=== PATIENT | female | born 1940 | race African-American/Black ===

== ENCOUNTER 2016-10-18 07:04 | Inpatient (IN) | payer MEDICARE, OTHER ==
[~2016-10-18] VITALS: Ht 154.9 cm; Wt 56.2 kg
[2016-10-18] VITALS (11 sets, daily range): BP systolic 132–169; BP diastolic 55–93
[~2016-10-18 07:04] MED LIST: ACET500T68 PO; ALLO100T PO; ALLO300T PO; AMLO10TA2 PO; ASPI81TA2 PO; ASPI81TA9 PO; BETH25TA PO; CARV3.122 PO; CEPH-264 PO; CLOP75TA PO; CLOP75TA27 PO; ESCI10TA PO; FERR325T58 PO; FURO-69 PO; FURO80TA3 PO; IPRA3AMP NEB; LEVO250T25 PO; LEVO88TA4 PO; LISI10TA2 PO; PANT40TA3 PO; PANT40TA5 PO; PRAV10TA2 PO; PRAV40TA2 PO; RIFA550T PO; SPIR25TA3 PO; SPIR50TA2 PO; TAMS0.4C2 PO; TORS20TA2 PO; TRAM50TA PO; ZOLP5TAB PO
[2016-10-18 07:35] LABS: BASO % 1 % (0-3); EOS % 3 % (0-3); HEMATOCRIT 32.5 % (36.0-47.0); HEMOGLOBIN 10.2 g/dL (12.0-15.5); LYMPH # 0.4 x10^3/uL (1.0-4.8); LYMPH % 10 % (24-48); MEAN CORPUSCULAR HEMOGLOBIN 27 pg (25-35); MEAN CORPUSCULAR HGB CONC 31 g/dL (31-37); MEAN CORPUSCULAR VOLUME 86 fL (79-100); MONO % 9 % (0-9); NEUT % 77 % (31-73); PLATELET COUNT 69 x10^3/uL (140-400); RED BLOOD COUNT 3.77 x10^6/uL (3.50-5.40); RED CELL DISTRIBUTION WIDTH 17.6 % (11.5-14.5); WHITE BLOOD COUNT 4.3 x10^3/uL (4.0-11.0)
[2016-10-18 07:43] LABS: INR 1.2 (0.8-1.1); PROTHROMBIN TIME PATIENT 14.7 SEC (11.7-14.0)
[2016-10-18] MEDS ORDERED: CLOP75TA27 PO (07:51)
[2016-10-18] MEDS ORDERED: ISOS30TA4 PO (07:51)
[2016-10-18] MEDS ORDERED: ASCO500C PO (07:51)
[2016-10-18] MEDS ORDERED: CARV6.252 PO (07:51)
[2016-10-18] MEDS ORDERED: SPIR25TA3 PO (07:51)
[2016-10-18] MEDS ORDERED: LISI40TA PO (07:51)
[2016-10-18] MEDS ORDERED: FERR-26 PO ×2 (07:51→14:46)
[2016-10-18] MEDS ORDERED: ALLO300T PO (07:51)
[2016-10-18] MEDS ORDERED: LEVO75TA5 PO (07:51)
[2016-10-18 07:55] LABS: CALCIUM 8.9 mg/dL (8.5-10.1); GFR 65.8; POTASSIUM 3.8 mmol/L (3.5-5.1)
[2016-10-18] MEDS ORDERED: NALOXONE 0.4 MG/ML VIAL. ONE (08:16)
[2016-10-18] MEDS ORDERED: LIDOCAINE 1% / SOD BICARB 8.4% 20 ML VIAL. IJ ONE ×2 (08:16→08:45)
[2016-10-18] MEDS ORDERED: MIDAZOLAM HCL/PF 5 MG/5 ML VIAL ONE (08:17)
[2016-10-18] MEDS ORDERED: FENTANYL PF 250 MCG/5 ML VIAL. ONE (08:17)
[2016-10-18] MEDS ORDERED: FLUMAZENIL 0.5 MG/5 ML VIAL. IV ONE (08:17)
[2016-10-18] MEDS ORDERED: IODIXANOL 320 MG/ML 100 ML VIAL. ONE (08:23)
[2016-10-18] MEDS ORDERED: IOHEXOL 300 MG/ML 100ML VIAL. ONE (08:23)
[2016-10-18] MEDS ORDERED: HEPARIN for ARTERIAL LINE 1,500 ML ONE (08:23)
[2016-10-18] MEDS ORDERED: IODIXANOL 320MG/ML 50ML VIAL. ONE (08:23)
[2016-10-18] MEDS ORDERED: MIDAZOLAM HCL/PF 5 MG/5 ML VIAL IV ONE (08:45)
[2016-10-18] MEDS ORDERED: FENTANYL PF 250 MCG/5 ML VIAL. IV ONE (08:45)
[2016-10-18] MEDS ORDERED: IOHEXOL 300 MG/ML 100ML VIAL. IART ONE (08:45)
[2016-10-18] MEDS ORDERED: IODIXANOL 320 MG/ML 100 ML VIAL. IART ONE (08:45)
[2016-10-18] MEDS ORDERED: CONTRAST GIVEN MC PRN (09:00)
[2016-10-18] MEDS ORDERED: HEPARIN for IV BOLUS 10,000 UNIT/10 ML VIAL. ONE (09:15)
[2016-10-18] MEDS ORDERED: HEPARIN for IV BOLUS 10,000 UNIT/10 ML VIAL. IART ONE (10:00)
[2016-10-18] MEDS ORDERED: PROTAMINE 50 MG/5 ML VIAL. IV ONE ×2 (12:00→12:15)
--- NOTE | 2016-10-18 12:34 | PDOC ---
MODERATE SEDATION ASSESSMENT RISKS/ALTERNATIVES Risks/Alternatives Risks and alternatives of this type of sedation and procedure discussed with: RISK/ALTERNATIVES: Patient H & P ON CHART H & P H & P on chart and reviewed for co-morbid conditions and appropriate labs. H&P ON CHART: Yes STATUS PREG STATUS ASSESSED: N/A MEDS/ALLERGIES REVIEWED Meds/Allergies Reviewed Medications and Allergies including time and route of recently administered narcotics and sedatives. MEDS/ALLERGIES REVIEWED: Yes ASA RATING ASA RATING: III AIRWAY ASSESSMENT Airway Assessment Airway patency, oral function limitations, presence of caps, crowns, dentures, partials, and ability to extend neck assessed. AIRWAY ASSESSMENT: Yes MALLAMPATI SCORE MALLAMPATI SCORE: II PRE-SEDATION ASSESSMENT PRE-SEDATION ASSESSMENT: Yes KODI SIMENTAL MD Oct 18, 2016 12:34
--- NOTE | 2016-10-18 12:41 | PDOC ---
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 Post-Procedure Diagnosis Post-Procedure Diagnosis Severe mid-distal left SFA occlusive disease. Pop recon above knee. Dominant single vessel PT distal r/o to foot Procedure Performed Procedure Performed Selective left leg angio---antegrade access. PRODUCTION HAND entire left SFA. Stent from mid left SFA - proximal Poplitaeal Type of Anesthesia Type of Anesthesia Local + Mod sedation Estimated Blood Loss EBL: 100 cc Condition of Patient Condition of Patient Stable. Left groin hematoma, s/p failed Mynx closure. Disposition Disposition Due to groin hematoma, recommend overnight obs admit. F/u with Dr Xie. Full report to follow. Resume daily plavix. Note: 1. Post procedure CT abd/pelvis confirmed localized left groin hematoma. Will request Doppler ultrasound to exclude pseudoaneurysm. 2. CT images also revealed changes c/w cirrhosis and portal HTN, with large volume ascites. KODI SIMENTAL MD Oct 18, 2016 12:41
--- NOTE | 2016-10-18 12:45 | PDOC1 ---
History and Physical Date of Procedure Date of Admission 10/18/16 Procedure Procedure Selective left lower extremity +/- intervention, if possible Indication Indication 75 YO female with angiographically proven PAD. Left calf claudication. Past Medical History Past Medical History See Nursing Pre Procedure PMH Past Surgical History Past Surgical History See Nursing Pre procedure PSH Current Medications Current Medications Current Medications Lidocaine/Sodium Bicarbonate (Buffered Lidocaine 1%) 20 ml STK-MED ONCE IJ ; Start 10/18/16 at 08:16; Stop 10/18/16 at 08:17; Status DC Naloxone HCl (Narcan) 0.4 mg STK-MED ONCE .ROUTE ; Start 10/18/16 at 08:16; Stop 10/18/16 at 08:17; Status DC Flumazenil (Romazicon) 0.5 mg STK-MED ONCE IV ; Start 10/18/16 at 08:17; Stop at 08:18; Status DC Midazolam HCl (Versed) 5 mg STK-MED ONCE .ROUTE ; Start 10/18/16 at 08:17; Stop 10/18/16 at 08:18; Status DC Fentanyl Citrate (Fentanyl 5ml Vial) 250 mcg STK-MED ONCE .ROUTE ; Start at 08:17; Stop 10/18/16 at 08:18; Status DC Iodixanol (Visipaque 320) 50 ml STK-MED ONCE .ROUTE ; Start 10/18/16 at 08:23; Stop 10/18/16 at 08:24; Status DC Iohexol 100 ml 100 ml STK-MED ONCE .ROUTE ; Start 10/18/16 at 08:23; Stop at 08:24; Status DC Heparin Sodium/ Sodium Chloride 1,500 ml @ As Directed STK-MED ONCE .ROUTE ; Start 10/18/16 at 08:23; Stop 10/18/16 at 08:24; Status DC Iodixanol (Visipaque 320) 100 ml STK-MED ONCE .ROUTE ; Start 10/18/16 at 08:23; Stop 10/18/16 at 08:24; Status DC Heparin Sodium/ Sodium Chloride 1,000 unit 1X ONCE IART Last administered on t 10:51; Start 10/18/16 at 08:45; Stop 10/18/16 at 08:51; Status DC Lidocaine/Sodium Bicarbonate (Buffered Lidocaine 1%) 20 ml 1X ONCE IJ Last administered on 10/18/16 10:52; Start 10/18/16 at 08:45; Stop 10/18/16 at 08:52 ; Status DC Midazolam HCl (Versed) 5 mg 1X ONCE IV Last administered on 10/18/16 08:45; Start 10/18/16 at 08:45; Stop 10/18/16 at 08:52; Status DC Fentanyl Citrate (Fentanyl 5ml Vial) 250 mcg 1X ONCE IV Last administered on 08:45; Start 10/18/16 at 08:45; Stop 10/18/16 at 08:51; Status DC Iohexol (Omnipaque 300 Mg/ml) 100 ml 1X ONCE IART ; Start 10/18/16 at 08:45; Stop 10/18/16 at 08:52; Status DC Iodixanol (Visipaque 320) 150 ml 1X ONCE IART Last administered on 10/18/16 08:45; Start 10/18/16 at 08:45; Stop 10/18/16 at 08:51; Status DC Info (Do NOT chart on this entry -- for MONITORING) 1 each PRN DAILY PRN MC SEE COMMENTS; Start 10/18/16 at 09:00; Stop 10/20/16 at 08:59 Heparin Sodium (Porcine) 10,000 unit STK-MED ONCE .ROUTE ; Start 10/18/16 at 09: 15; Stop 10/18/16 at 09:16; Status DC Heparin Sodium (Porcine) 4,000 unit 1X ONCE IART Last administered on 10:00; Start 10/18/16 at 10:00; Stop 10/18/16 at 10:01; Status DC Protamine Sulfate 50 mg STK-MED ONCE IV ; Start 10/18/16 at 12:00; Stop at 12:01; Status DC Protamine Sulfate 20 mg 1X ONCE IV ; Start 10/18/16 at 12:15; Stop 10/18/16 at 12:16; Status DC Active Scripts Active Protonix (Pantoprazole Sodium) 40 Mg Tablet 40 Mg PO DAILYAC Reported Carvedilol 6.25 Mg Tablet 1 Tab PO DAILY Spironolactone 25 Mg Tablet 1 Tab PO BID Lisinopril 40 Mg Tablet 1 Tab PO DAILY Levothyroxine Sodium 75 Mcg Tablet 1 Tab PO DAILY Isosorbide Mononitrate Er (Isosorbide Mononitrate) 30 Mg Tab.er.24h 1 Tab PO DAILY Ferrous Sulfate 325 Mg Tablet 1 Tab PO BID Vitamin C (Ascorbic Acid) 500 Mg Capsule.er 500 Mg PO DAILY Plavix (Clopidogrel Bisulfate) 75 Mg Tablet 1 Tab PO DAILY Allopurinol 300 Mg Tablet 1 Tab PO DAILY Aspirin Ec (Aspirin) 81 Mg Tablet.dr 1 Tab PO DAILY Bethanechol Chloride 25 Mg Tablet 50 Mg PO TID Amlodipine Besylate 10 Mg Tablet 10 Mg PO DAILY Allergies Allergies: Coded Allergies: codeine (Verified Allergy, Severe, Anaphylaxis, tolerates Lortab OK, ) Physical Exam Vital Signs Vital Signs Date Time Temp Pulse Resp B/P Pulse Ox O2 Delivery O2 Flow Rate FiO2 10/18/16 11:17 58 12 100 Nasal Cannula 2.0 10/18/16 07:38 97.8 158/79 97.8 Lungs: Clear to auscultation Heart: Regular rate Psych/Mental Status: Mental status NL Vascular 1+ left SHOE LAY OUT PLANNER pulse. Left foot cool, with nonpalpable pulses. Diagnostic Data/Imaging Images Previous [facility] cardiology femoral r/o from 05/03/16 personally reviewed. Assessment Assessment Significant left lower extremity PAD, with claudication. Problems: Plan Plan Selective left leg angio via sono guided antegrade access. Endovascular Tx of left SFA-POP segment, if possible. KODI SIMENTAL MD Oct 18, 2016 12:44
--- NOTE | 2016-10-18 12:54 | RAD ---
Indication: Left groin hematoma. Axial imaging through the abdomen and pelvis was performed without contrast. Comparison is made with prior CT from 01/12/2011. The lung bases are clear. The liver has somewhat of a nodular contour. The possibility of cirrhosis cannot be excluded. The spleen is enlarged at 13.5 cm. There is perihepatic and perisplenic ascites. Pancreas is unremarkable. No adrenal mass is detected. There is contrast within both renal collecting systems from recent IV contrast. Aorta and iliac vessels are heavily calcified but nonaneurysmal. The small and large bowel loops are normal caliber. There is a large amount of free fluid in the remainder of the abdomen as well as the pelvis. The bladder is decompressed by Pascual catheter. The uterus is unremarkable. There is a hematoma in the left groin measuring 4.7 x 3.3 cm. Moderate amount of edema in the surrounding subcutaneous fat is also present. Impression: 1. Findings suspicious for cirrhosis and portal hypertension. There is splenomegaly and large abdominal and pelvic ascites. 2. Left groin hematoma, as described. No other significant abnormality is detected. PQRS Compliance Statement: One or more of the following individualized dose reduction techniques were utilized for this examination: 1. Automated exposure control 2. Adjustment of the mA and/or kV according to patient size 3. Use of iterative reconstruction technique
--- NOTE | 2016-10-18 15:25 | RAD ---
Left groin ultrasound, 10/18/2016: History: Groin swelling after arteriogram The left groin was carefully scanned. The common femoral artery and vein are patent. There is a 3.3 x 3.0 x 2.9 cm hypoechoic process present anterior to the femoral vessels at the groin level. No color flow is seen within this structure. The appearance is that of a complex fluid collection such as a hematoma. No pseudoaneurysm is identified. IMPRESSION: Moderate sized left groin hematoma.
--- NOTE | 2016-10-18 15:35 | PDOC ---
Provider Note Provider Note Dr Kaufman has been following Pt, RN paged Dr Kaufman to know about consult, RICKI MONROY MD Oct 18, 2016 15:35
[2016-10-18] MEDS ORDERED: ACETAMINOPHEN 325 MG TABLET. PO PRN (16:00)
--- NOTE | 2016-10-18 17:29 | PDOC ---
Provider Note Provider Note IR Note: S/P selective left leg angio with SFA-POP intervention. VSS. No expanding left groin hematoma---no pseudoaneurysm at Doppler U/S. Strong PT Doppler pulse at left ankle. Home in AM, if no further bleeding and if OK with Dr Kaufman--F/u with Dr Xie. KODI SIMENTAL MD Oct 18, 2016 17:28
--- NOTE | 2016-10-18 17:52 | PDOC ---
Provider Note Provider Note See consultation note dictation #[id number] Impression: 1. Peripheral arterial disease, left SFA status post intervention with stent and resultant hematoma left groin: 2. 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 Hypertension: 4. History of COPD: PAULA HOPKINS MD Oct 18, 2016 17:52
[2016-10-18] MEDS: SPIRONOLACTONE 25 MG TABLET PO SCH (21:46)
[2016-10-18] MEDS: FERROUS SULFATE 325 MG TABLET PO SCH (21:46)
[2016-10-18] MEDS: BETHANECHOL CHLORIDE 25 MG TABLET PO SCH (21:47)
[2016-10-19] VITALS (7 sets, daily range): BP systolic 103–168; BP diastolic 54–69
[2016-10-19] MEDS: HYDROCODONE/APAP 5/325MG TABLET. PO PRN ×2 (04:21→14:46)
[2016-10-19] MEDS: PANTOPRAZOLE 40 MG TABLET. PO SCH (07:34)
[2016-10-19] MEDS: LEVOTHYROXINE 75 MCG TABLET PO SCH (07:34)
--- NOTE | 2016-10-19 07:57 | RAD ---
Selective left lower extremity arteriogram via ultrasound-guided antegrade left common femoral artery access MANAGED CARE DIRECTOR entire left superficial femoral artery Stent placement from mid left superficial femoral artery through proximal popliteal artery Indication: 75-year-old female with angiographically proven, severe PAD, with left leg pain. Selective left lower extremity arteriogram, with possible intervention, has been requested by vascular surgery. Fluoroscopy time: 49.9 minutes Kerma-area Product: 5013.5 microGyM2 Contrast material: 125 cc Visipaque Anesthesia: 220 minutes moderate sedation was provided utilizing a total of 5 mg Versed and 250 mcg fentanyl, IV. The patient was appropriately monitored by a qualified independent observer throughout the time of moderate sedation. Consent: The procedure was explained in its entirety to the patient and/or the patient's designated liability claims representative by a member of the treatment team. This included a discussion of risks and benefits and commonly accepted alternatives to the procedure, as well as expected consequences of no treatment at all. Discussion of risks included, but was not limited to, those that are most frequent and those that are rare, but possibly severe or life-threatening, as well as the possibility of unforeseen complications. Sterility: All elements of maximal sterile barrier technique were utilized, including cap, mask, sterile gown, sterile gloves, large sterile sheet, appropriate hand hygiene, and 2% chlorhexidine for cutaneous antisepsis. Procedure: Informed consent was obtained from the patient. She was placed supine on the angiography table. Preliminary ultrasound examination of left groin revealed wide patency of left common femoral artery, which was documented with a single hard copy ultrasound image. Left groin was then prepped and draped in the usual sterile fashion, utilizing all elements of maximal sterile barrier technique, as described above. Moderate sedation was provided with IV Versed and fentanyl. Using aseptic technique, local anesthesia, direct ultrasound guidance, and the micropuncture system, a 5 Greenlandic antegrade left common femoral artery sheath was successfully introduced. Left lower extremity arteriogram: Visipaque 320 was injected through the left common femoral artery 5 Greenlandic sheath and DSA images were obtained over left groin and proximal thigh. A 4 Greenlandic angled glide catheter was then advanced through the 5 Greenlandic sheath and was successfully directed into proximal left superficial femoral artery. Visipaque 320 was again injected and DSA images were obtained from proximal thigh through knee. Following the percutaneous intervention described below, the 4 Greenlandic angled glide catheter was positioned within mid left popliteal artery. Visipaque 320 was injected and DSA images were obtained from knee through foot. Findings: Postoperative left common femoral artery is widely patent. Left deep femoral artery appears widely patent, as well. There is approximately 60% narrowing at origin of left superficial femoral artery. Mid-distal segment of left superficial femoral artery is generally small in caliber and is severely diseased, with multifocal significant stenoses and with areas of segmental occlusion. A 50% smooth stenosis lies within mid left popliteal artery, which is otherwise widely patent.. Anterior tibial artery is occluded just distal to its origin. Tibioperoneal trunk shows areas of mild eccentric narrowing. Dominant left lower extremity distal runoff is via posterior tibial artery, which is widely patent from origin through plantar vessels at mid foot. Smaller caliber peroneal artery is patent from origin through distal calf. Left lower extremity arterial intervention: Following the diagnostic arteriogram, the angled guide catheter was exchanged for a Raphael Cross catheter over a Beamly advantage guidewire. Subsequently, utilizing fluoroscopic guidance and road mapping technique, the Raphael Cross catheter/advantage guidewire combination was successfully advanced through the severely diseased mid and distal left superficial femoral artery into mid left popliteal artery. Intraluminal position of the Raphael Cross catheter within popliteal artery was confirmed with a contrast injection. The Raphael Cross catheter was then removed over the advantage wire. The 5 Greenlandic antegrade left common femoral artery sheath was exchanged for a 6 Greenlandic sheath. A 4 Greenlandic angled glide catheter was then advanced through the 6 Greenlandic sheath over the advantage wire into left popliteal artery. The angled glide catheter was then removed over a long grand slam microguidewire. Following IV bolus administration of 4000 units heparin, a 3 mm x 120 mm chocolate MANAGED CARE DIRECTOR balloon was advanced through the 6 Greenlandic sheath over the grand slam wire and was utilized to perform balloon angioplasty of entire left superficial femoral artery to a peak pressure of 9 gail for 3- 4 minutes. The 3 mm chocolate MANAGED CARE DIRECTOR balloon was then exchanged over the grand slam wire for a 4 mm x 120 mm chocolate balloon, which was also utilized to perform balloon angioplasty of entire left superficial femoral artery to a peak pressure of 9 gail for 3-4 minutes. Post plasty images revealed lutheran of patency of mid and distal left superficial femoral artery, with multiple areas of significant residual narrowing and with areas of flow-limiting dissection. Therefore, percutaneous stenting was considered necessary. A 5 mm x 100 mm Viabahn covered stent was advanced through the 6 Greenlandic sheath over the grand slam wire and was deployed across mid-distal left superficial femoral artery. An additional, overlapping 5 mm x 50 mm Viabahn covered stent was then deployed across mid left superficial femoral artery. Post dilatation of the 2 covered stents was then performed utilizing a 4 mm x 100 mm Powerflex MANAGED CARE DIRECTOR balloon, inflated to a peak pressure of 12 gail. Completion DSA images revealed widely patent middistal left superficial femoral artery, however, a short segment of flow limiting dissection was noted, extending into proximal left popliteal artery. Following an additional IV bolus ministration of 2000 units heparin, a 6 mm x 40 mm self-expanding Smart stent was carefully deployed across the area of dissection, extending superiorly into the more inferior Viabahn covered stent. Gentle post dilatation of the SMART stent was then performed utilizing the 4 mm MANAGED CARE DIRECTOR balloon. Completion DSA images revealed brisk antegrade flow across widely patent left superficial femoral artery, without complicating dissection, thrombosis, or distal embolization. Moderate, less than 50 % stenosis, was noted at the angioplastied left superficial femoral artery origin. The postoperative left common femoral artery and left deep femoral artery remains widely patent. Patient tolerated the arteriogram and arterial intervention procedure well, without apparent complication. However, attempted Mynx closure of the antegrade left common femoral artery puncture was unsuccessful. Hemostasis at left groin was eventually achieved following 60 minutes of manual pressure and with partial heparin reversal with protamine. A small residual left groin hematoma was present. Pseudoaneurysm formation was excluded by subsequent duplex Doppler ultrasound. Impression: 1. Severe mid-distal superficial femoral artery occlusive disease, including areas of segmental occlusion. Reconstituted left popliteal artery shows moderate stenosis at the level of knee joint. There is dominant single vessel left posterior tibial artery, which is widely patent from origin through plantar vessels at mid foot. 2. Successful left lower extremity arterial intervention, with lutheran of widely patent mid-distal left superficial femoral artery, as described, without complicating thrombosis or distal embolization. 3. Post procedure left groin hematoma, without pseudoaneurysm, resulting from failed Mynx puncture site closure. Due to this patient's closure site complication, the patient was admitted to primary care physician for overnight observation.
[2016-10-19] MEDS: CARVEDILOL 6.25 MG TABLET PO SCH (09:00)
[2016-10-19] MEDS: LISINOPRIL 40 MG TABLET. PO SCH (09:00)
[2016-10-19] MEDS: ISOSORBIDE MONONITRATE ER 30 MG TAB.ER.24H PO SCH (09:00)
[2016-10-19] MEDS: AMLODIPINE BESYLATE 10 MG TABLET PO SCH (09:00)
[2016-10-19] MEDS: SPIRONOLACTONE 25 MG TABLET PO SCH ×2 (09:20→21:51)
[2016-10-19] MEDS: ALLOPURINOL 300 MG TABLET. PO SCH (09:20)
[2016-10-19] MEDS: ASPIRIN ENTERIC COATED 81 MG TABLET.DR. PO SCH (09:20)
[2016-10-19] MEDS: BETHANECHOL CHLORIDE 25 MG TABLET PO SCH ×3 (09:20→21:53)
[2016-10-19] MEDS: CLOPIDOGREL BISULFATE 75 MG TABLET PO SCH (09:20)
[2016-10-19] MEDS: FERROUS SULFATE 325 MG TABLET PO SCH ×2 (09:20→21:51)
--- NOTE | 2016-10-19 11:50 | PDOC ---
Provider Note Provider Note s/p left SFA angioplasty and stenting yesterday by Dr. Mcrae AF VSS awake and alert left groin with bruising however soft and no hematoma left foot warm with doppler DP/PT pulses A/P s/p Left SFA angioplasty and stenting for rest pain - follow up with Dr. Xie 2 weeks following discharge - continue daily plavix NNAMDI XIE MD Oct 19, 2016 11:50
--- NOTE | 2016-10-19 13:44 | PDOC ---
SUBJECTIVE Subjective Still having some pain in the left groin and upper leg area. Able to void okay. Eating and drinking okay. No shortness of breath. Having some difficulty with ability still at this point. OBJECTIVE Vital Signs Vital Signs Date Time Temp Pulse Resp B/P Pulse Ox O2 Delivery O2 Flow Rate FiO2 10/19/16 08:00 Nasal Cannula 2.0 10/19/16 08:00 98.9 72 18 150/69 98 Nasal Cannula 2.0 98.9 10/19/16 05:21 14 95 Nasal Cannula 2.0 10/19/16 04:21 20 95 Nasal Cannula 2.0 10/19/16 04:00 99.8 79 14 168/67 95 Nasal Cannula 2.0 99.8 10/19/16 00:00 99.9 75 14 143/63 96 Nasal Cannula 2.0 99.9 10/18/16 20:00 Nasal Cannula 2.0 10/18/16 20:00 99.5 55 16 141/55 96 Nasal Cannula 2.0 99.5 10/18/16 15:15 55 20 132/77 99 Nasal Cannula 2.0 10/18/16 15:00 54 20 152/70 99 Nasal Cannula 2.0 10/18/16 14:45 57 14 136/70 98 Nasal Cannula 2.0 10/18/16 14:30 53 14 160/72 98 Nasal Cannula 2.0 10/18/16 14:15 56 16 137/93 98 Nasal Cannula 2.0 10/18/16 14:00 62 16 139/79 92 Nasal Cannula 2.0 10/18/16 13:45 57 16 163/68 99 Nasal Cannula 2.0 10/18/16 13:44 Nasal Cannula 2.0 I & O Intake and Output 10/19/16 07:00 Intake Total 550 ml Output Total 950 ml Balance -400 ml Intake Oral 550 ml Output Urine Total 950 ml PHYSICAL EXAM Physical Exam General: No acute distress. Laying in bed. Does have some pain when she tries to move her left leg. Mental status: Alert and oriented. Chest: Clear to auscultation bilaterally anteriorly. Okay air movement. CV: Normal rate. Regular rhythm. No murmur. Abdomen: Occasional bowel sounds. Soft. Protuberant. There is some tenderness in the left inguinal and suprapubic areas of palpation with bruising noted.. No guarding. No rebound. Extremities: No lower extremity edema. There is some bruising and tenderness in the proximal medial left thigh. ASSESSMENT/PLAN Assessment/Plan 1. Peripheral arterial disease: Status post intervention with hematoma. Seems to be doing okay but still little bit limited in her mobility. Will see how she does with movement around today and probable discharge tomorrow. 2. Alcoholic liver disease with cirrhosis: She probably does have some ascites but will continue with her diuretics. 3. Hypertension: Blood pressures have been running a little bit low so some of her medications of an held: 4. History of COPD: Appears to be stable at present. 5. Disposition: Probable discharge tomorrow if she is able to ambulate better. Problems: COMMENT Lab Laboratory Tests Test 10/18/16 14:00 Nasal Screen MRSA (PCR) Negative (Negative) PAULA HOPKINS MD Oct 19, 2016 13:44
[2016-10-20 03:00] VITALS: BP 122/47
[2016-10-20] MEDS: LEVOTHYROXINE 75 MCG TABLET PO SCH (06:23)
[2016-10-20] MEDS: HYDROCODONE/APAP 5/325MG TABLET. PO PRN (06:24)
[2016-10-20 07:15] VITALS: BP 134/50
--- NOTE | 2016-10-20 08:11 | DISCH ---
DISCHARGE DISCHARGE DATE: Oct 20, 2016 FINAL DIAGNOSIS PAD Left groin hematoma CONDITION ON DISCHARGE: Stable HOME HEALTH: Yes (PT and nursing for groin hematoma) PT. HAS FUNCTIONAL LIMITATIONS: Yes FACE TO FACE ENCOUNTER: Yes POST DISCHARGE ORDERS ACTIVITY ORDERS: Activity as tolerated WEIGHT BEARING STATUS: As tolerated DIET AFTER DISCHARGE: Cardiac WOUND/INCISION CARE: Other, see below (per IR and vasc surgery) CHECKS AFTER DISCHARGE CHECKS AFTER DISCHARGE: Check blood press - daily, Weigh Yourself Daily FOLLOW-UP PHYSICIAN FOLLOW-UP: Vasc surgery per their rec ADDITIONAL FOLLOW-UP: Dr Kaufman in 1-2 weeks TREATMENT/EQUIPMENT ORDERS ADAPTIVE EQUIPMENT NEEDED: None RESPIRATORY EQUIPMENT NEEDED: Nebulizer (has at home) PAULA HOPKINS MD Oct 20, 2016 08:11
[2016-10-20] MEDS ORDERED: HYDR-2666 PO (08:18)
--- NOTE | 2016-10-20 08:21 | PDOC ---
OBJECTIVE Vital Signs Vital Signs Date Time Temp Pulse Resp B/P Pulse Ox O2 Delivery O2 Flow Rate FiO2 10/20/16 07:15 97.7 79 16 134/50 94 Room Air 97.7 10/20/16 06:24 Room Air 10/20/16 03:00 99.5 80 18 122/47 89 Room Air 99.5 10/19/16 23:00 98.8 83 18 116/60 91 Room Air 98.8 10/19/16 19:55 Room Air 10/19/16 19:00 100.8 84 18 103/54 92 Room Air 100.8 10/19/16 16:18 100.7 85 18 148/56 97 Room Air 100.7 10/19/16 15:50 16 99 Room Air 10/19/16 14:46 18 99 Room Air 10/19/16 12:00 98.9 86 18 126/62 98 Room Air 98.9 I & O Intake and Output 10/20/16 07:00 Intake Total 120 ml Balance 120 ml Intake Oral 120 ml PHYSICAL EXAM Physical Exam General: No acute distress. Laying in bed. Does have some pain when she tries to move her left leg. Mental status: Alert and oriented. Chest: Clear to auscultation bilaterally anteriorly. Okay air movement. CV: Normal rate. Regular rhythm. No murmur. Abdomen: Occasional bowel sounds. Soft. Protuberant. There is some tenderness in the left inguinal and suprapubic areas of palpation with bruising noted.. No guarding. No rebound. Extremities: No lower extremity edema. There is some bruising and tenderness in the proximal medial left thigh. ASSESSMENT/PLAN Assessment/Plan 1. Peripheral arterial disease, left SFA: Status post intervention with hematoma. Doing better. Okay to d/c today from primary care view 2. Alcoholic liver disease with cirrhosis: She probably does have some ascites but will continue with her diuretics. 3. Hypertension: Blood pressures have okay with meds. d/c meds at d/c and re- eval as outpt. med rec done 4. History of COPD: Appears to be stable at present. 5. Disposition: Probable discharge today okay from primary care view. f/u Dr Kaufman in 1-2 weeks Problems: PAULA HOPKINS MD Oct 20, 2016 08:21
[2016-10-20] MEDS: AMLODIPINE BESYLATE 10 MG TABLET PO SCH (09:00)
[2016-10-20] MEDS: CLOPIDOGREL BISULFATE 75 MG TABLET PO SCH (09:00)
[2016-10-20] MEDS: ALLOPURINOL 300 MG TABLET. PO SCH (09:00)
[2016-10-20] MEDS: ISOSORBIDE MONONITRATE ER 30 MG TAB.ER.24H PO SCH (09:01)
[2016-10-20] MEDS: CARVEDILOL 6.25 MG TABLET PO SCH (09:01)
[2016-10-20] MEDS: SPIRONOLACTONE 25 MG TABLET PO SCH (09:01)
[2016-10-20] MEDS: BETHANECHOL CHLORIDE 25 MG TABLET PO SCH ×2 (09:01→14:00)
[2016-10-20] MEDS: PANTOPRAZOLE 40 MG TABLET. PO SCH (09:02)
[2016-10-20] MEDS: ASPIRIN ENTERIC COATED 81 MG TABLET.DR. PO SCH (09:02)
[2016-10-20] MEDS: LISINOPRIL 40 MG TABLET. PO SCH (09:02)
[2016-10-20] MEDS: FERROUS SULFATE 325 MG TABLET PO SCH (09:02)
[2016-10-20 11:15] VITALS: BP 112/71
--- NOTE | 2016-10-20 13:10 | CONS ---
DATE OF CONSULTATION: 10/18/2016 ATTENDING PHYSICIAN: Dr. Xie. REASON FOR CONSULTATION: Management of chronic medical problems including hypertension, end-stage liver disease with cirrhosis. HISTORY OF PRESENT ILLNESS: The patient is a 75-year-old female with symptomatic left leg claudication with angiographically proven obstruction. She underwent selective left leg angio with superficial femoral artery and popliteal intervention. At the time of the surgery, she failed Mynx closure and had a resultant left groin hematoma. Interventional Radiology had recommended that she be observed for worsening hematoma and bleeding. She did have an ultrasound, which did not show any pseudoaneurysm. PAST MEDICAL HISTORY: Significant for hypertension, hyperlipidemia, rheumatic fever, peripheral arterial disease, osteoarthritis, COPD, gout, hypothyroidism, carotid stenosis, alcoholic liver disease, esophageal varices, TIA, anemia. PAST SURGICAL HISTORY: Cholecystectomy, appendectomy, total thyroidectomy, right renal artery stent in 2008, bilateral carotid endarterectomies, right leg revascularization. SOCIAL HISTORY: The patient states that she did stop smoking. She states that she quit drinking alcohol. ALLERGIES TO MEDICATIONS: Codeine. FAMILY HISTORY: Noncontributory. MEDICATIONS: At the time of admission include allopurinol 300 mg p.o. daily, vitamin C 500 mg p.o. daily, aspirin 81 mg p.o. daily, bethanecol 50 mg p.o. t.i.d., Plavix 75 mg p.o. daily, iron 325 mg p.o. b.i.d, [place] 5/325 one p.o. q. 6 horus p.r.n, Imdur 30 mg p.o. daily, levothyroxine 75 mcg p.o. daily, Protonix 40 mg p.o. daily, Aldactone 25 mg p.o. b.i.d. REVIEW OF SYSTEMS: The patient denies any fevers. She denies any upper respiratory symptoms. She denies any cough. She does have occasional difficulty breathing with her COPD. She denies any chest pain or palpitations. She denies any nausea or vomiting. She does have some pain in the left groin from the hematoma. She has been able to void. She has not had any problems with diarrhea or constipation. The pain does radiate down into her left upper leg. She denies any numbness in the lower leg. PHYSICAL EXAMINATION: VITAL SIGNS: At the time of admission, temperature 97.8, pulse 53, respiratory rate 16, blood pressure 158/79, and O2 sat 99% on room air. GENERAL: The patient is a well-developed, thin female in no acute distress, lying in bed. HEENT: The pupils are equal and round. There is no significant scleral icterus. The oropharynx is pink and moist. NECK: Without JVD. CHEST: Clear to auscultation with decreased air movement throughout. CARDIOVASCULAR: The heart has a regular rate and rhythm without murmur. ABDOMEN: Protuberant, soft, and nontender. There are occasional bowel sounds. EXTREMITIES: There is no edema in the bilateral lower extremities. There is a hematoma that encompasses areas on the proximal medial left thigh extending into the symphysis pubis area. On the left, there is a dressing in place that is clean and dry at present. NEUROLOGIC: Sensation is intact in the lower extremity. PSYCHIATRIC: Mood and affect appear appropriate. IMAGING: With an ultrasound of the left groin shows a 3.3 x 3.0 x 2.9-cm hematoma in the left groin without any evidence of pseudoaneurysm. IMPRESSION: 1. Peripheral arterial disease, status post left superficial femoral artery intervention with stent and resultant left groin hematoma. 2. Alcoholic liver disease with cirrhosis and ascites. 3. Hypertension. 4. History of chronic obstructive pulmonary disease. PLAN: The patient is admitted per Interventional Radiology and Vascular Surgery's recommendations. The stenting seems to be successful otherwise. She is having some difficulty with mobility, so we will see how she does with ambulation. Pain control as needed. She does appear to have some ascites, but I would be less inclined to do any intervention for that since she is basically not having any significant symptoms, especially in light of her recent stent placement and with a hematoma that can be managed with her current medications. We will use her blood pressure medications as needed, although her blood pressure is fairly good right now without additional medication. Further treatment will be based on how she does and Interventional and Vascular Surgery's recommendations. PAULA HOPKINS MD DR: NGUYỄN/eri JOB#: [id number] / [id number] KEEGAN
[2016-10-20 15:15] VITALS: BP 97/54
[2016-10-20] MEDS ORDERED: HEPARIN PF 500 UNIT/5 ML DISP.SYRIN. IV STA (15:43)
== END 2016-10-20 16:01 | disposition home health service (06) | DRG 253 ==
LOC: INTRAD 07:04 → 1 WEST ICU 11:55 → 4 NORTH 10-19 16:22
PROVIDERS: ADMIT Surgery Vascular Surgery; ATTEND Surgery Vascular Surgery
PROC: 047L3ZZ Dilation of Left Femoral Artery, Percutaneous Approach (ICD-10-PCS; principal; 2016-10-19)
PROC: B41J1ZZ Fluoroscopy of Other Lower Arteries using Low Osmolar Contrast (ICD-10-PCS; 2016-10-19)
PROC: 047L36Z Dilation of Left Femoral Artery with Three Drug-eluting Intraluminal Devices, Percutaneous Approach (ICD-10-PCS; 2016-10-19)
DX: I73.9 Peripheral vascular disease, unspecified (principal); I85.00 Esophageal varices without bleeding; D64.9 Anemia, unspecified; E03.9 Hypothyroidism, unspecified; E11.9 Type 2 diabetes mellitus without complications; E78.5 Hyperlipidemia, unspecified; I11.0 Hypertensive heart disease with heart failure; I50.9 Heart failure, unspecified; J44.9 Chronic obstructive pulmonary disease, unspecified; K70.31 Alcoholic cirrhosis of liver with ascites; M10.9 Gout, unspecified; Z86.73 Personal history of transient ischemic attack (TIA), and cerebral infarction without residual deficits; Z88.5 Allergy status to narcotic agent; Z88.6 Allergy status to analgesic agent; S30.1XXA Contusion of abdominal wall, initial encounter
CPT/HCPCS: 36415; 37226; 74176; 75710; 76937; 80048; 85027; 85347; 85610; 87641; 93926; A4215; C1713; C1758; C1760; C1769; C1892; C1894; J2250; J3010

== ENCOUNTER → 2017-01-25 | Outpatient (CLI) | payer MEDICARE, OTHER ==
[~2017-01-25] MED LIST changes: +ASCO500C PO; +CARV6.252 PO; +FERR-26 PO; +HYDR-2666 PO; +ISOS30TA4 PO; +LEVO75TA5 PO; +LISI40TA PO
--- NOTE | 2017-01-25 11:40 | RAD ---
Indication urinary retention. Grayscale imaging targeted to the kidneys was performed. Note is made of a complete abdominal ultrasound examination one September 26, 2015. The right kidney measures 9.3 x 4.4 x 3.8 cm. No hydronephrosis or mass is seen. The left kidney measures 9.9 x 3.8 x 3.3 cm and also appears normal showing no evidence of hydronephrosis or mass. Both kidneys are slightly echogenic suggesting medical renal disease Note was made during the examination of splenomegaly and moderate abdominal ascites. The patient has a Pascual catheter in the urinary bladder. The bladder, as a result, is collapsed and poorly evaluated with ultrasound. IMPRESSION: Slightly small but otherwise essentially unremarkable morphologic appearance of the kidneys. Splenomegaly. Abdominal ascites
[2017-01-25 11:42] LABS: CREATININE 1.1 mg/dL (0.6-1.0); GFR 58.7; POTASSIUM 3.7 mmol/L (3.5-5.1)
== END | disposition home or self-care (01) ==
LOC: US 10:55
PROVIDERS: ATTEND Nurse Practitioner Occupational Health
DX: R33.9 Retention of urine, unspecified (principal); R16.1 Splenomegaly, not elsewhere classified; R18.8 Other ascites
CPT/HCPCS: 36415; 76770; 80048